=== PATIENT | female | born 1995 | race African-American/Black ===

== ENCOUNTER 2016-05-04 13:30 | Emergency (ER) | payer SELFPAY ==
[~2016-05-04] VITALS: Ht 149.9 cm; Wt 90.0 kg
[~2016-05-04 13:30] MED LIST: ABIL5TAB6 PO; IBUP-232 PO
[2016-05-04 13:44] VITALS: BP 105/62; PULSE 64; RESP 18; TEMP 98.9; O2SAT 99
[2016-05-04] MEDS ORDERED: LAMO200T PO (13:56)
[2016-05-04] MEDS ORDERED: FLUO20CA4 PO (13:56)
[2016-05-04] MEDS ORDERED: CEFT500T3 PO (13:56)
--- NOTE | 2016-05-04 14:15 | PD ---
HPI Chief Complaint: Pain: Acute or Chronic Time Seen by Provider: 14:08 Travel History International Travel<30 days: No Contact w/Intl Traveler<30days: No Traveled to known affect area: No History of Present Illness HPI 20-year-old female with PMH of depression, anxiety, DM presents to the ED via EMS for evaluation of 2 week history of generalized weakness. Onset gradual. Patient denies muscular weakness, states that she feels "tired." She endorses low back pain, worsened by attempted range of motion. Also endorses nausea with one or 2 episodes of nonbloody, nonbilious vomiting. No nausea reported on presentation. She reports history of unmeasured fever. She denies palpitations, shortness of breath, changes in bowel habits. She states that she ate a salami sandwich before coming to the ED today. Patient's boyfriend is at bedside, states that the patient has been sleeping "all day" for the last week. Patient endorses risk of , states LMP "2 weeks ago." The patient endorses increased depression, anhedonia. Denies SI, HI. She states that she is noncompliant with any of her daily medications. PFSH Past Medical History Asthma: Yes Depression: Yes Diabetes: Yes Patient Takes Glucophage: No Diminished Hearing: No Hypertension: Yes Tetanus Vaccination: Unknown Influenza Vaccination: No ?: Not LMP: 04/23/16 : 0 Para: 0 Miscarriage: 0 : 0 Past Surgical History Abdominal Surgery: Yes (ovarian cyst) Gynecologic Surgery: Yes (RIGHT OVARIAN CYST) Other Surgery: Yes (OVARIAN CYST REMOVED) Social History Alcohol Use: No Tobacco Use: Yes (black & milds) Substance Use: No (DENIES) Allergies-Medications (Allergen,Severity, Reaction): Coded Allergies: No Known Allergies (Unverified , 05/04/16) Reported Meds & Prescriptions Reported Meds & Active Scripts Active Bactrim DS (Sulfamethoxazole-Trimethoprim) 800-160 Mg Tab 1 Tab PO BID Reported Lamotrigine 200 Mg Tab 200 Mg PO DAILY Fluoxetine (Fluoxetine HCl) 20 Mg Cap 20 Mg PO DAILY Ceftin (Cefuroxime Axetil) 500 Mg Tab 500 Mg PO TID Review of Systems Except as stated in HPI: all other systems reviewed are Neg Physical Exam Narrative GENERAL: Well-nourished, well-developed obese black female in no acute distress. PSYCHIATRIC: No delusional thought processes. No hallucinations. Depressed mood. Flat affect. SKIN: Warm and dry. HEAD: Normocephalic. EYES: No scleral icterus. No injection or drainage. NECK: Supple, trachea midline. No JVD or lymphadenopathy. CARDIOVASCULAR: Regular rate and rhythm without murmurs, gallops, or rubs. 2+ DP and radial pulses bilaterally. Mild midline tenderness to palpation of the precordium. RESPIRATORY: Breath sounds clear and equal bilaterally. No accessory muscle use. GASTROINTESTINAL: Abdomen soft, non-tender, nondistended. Active bowel sounds. MUSCULOSKELETAL: No cyanosis, or edema. NEUROLOGICAL: Awake and alert. Cranial nerves II through XII intact. Motor and sensory grossly within normal limits. Five out of 5 muscle strength in all muscle groups. Normal speech. BACK: No obvious deformity. No CVA tenderness. Tender to palpation of the paraspinal musculature in the low thoracic and lumbar areas. Data Data Last Documented VS Vital Signs Date Time Temp Pulse Resp B/P Pulse Ox O2 Delivery O2 Flow Rate FiO2 05/04/16 15:05 99 Room Air 05/04/16 13:44 98.9 64 18 105/62 Orders Complete Blood Count With Diff (05/04/16 14:06) Comprehensive Metabolic Panel (05/04/16 14:06) Lipase (05/04/16 14:06) Lactic Acid (05/04/16 14:06) Urinalysis - C+S If Indicated (05/04/16 14:06) Iv Access Insert/Monitor (05/04/16 14:06) Ecg Monitoring (05/04/16 14:06) Oximetry (05/04/16 14:06) Ed Urine Pregnancytest Poc (05/04/16 14:06) Psych Screen (05/04/16 14:06) Thyroid Stimulating Hormone (05/04/16 14:06) Urine Culture (05/04/16 14:15) Ceftriaxone Inj (Rocephin Inj) (05/04/16 15:30) Ketorolac Inj (Toradol Inj) (05/04/16 15:30) Labs Laboratory Tests Test 05/04/16 05/04/16 14:15 14:25 Urine Color YELLOW Urine Turbidity HAZY Urine pH 6.5 Urine Specific [place] 1.013 Urine Protein NEG mg/dL Urine Glucose (UA) 300 mg/dL Urine Ketones NEG mg/dL Urine Occult Blood NEG Urine Nitrite POS Urine Bilirubin NEG Urine Urobilinogen LESS THAN 2.0 MG/DL Urine Leukocyte Esterase MOD Urine RBC LESS THAN 1 /hpf Urine WBC 36 /hpf Urine WBC Clumps RARE Urine Squamous Epithelial 4 /hpf Cells Urine Mucus FEW /lpf Microscopic Urinalysis Comment CULTURE INDICATED White Blood Count 6.0 TH/MM3 Red Blood Count 5.17 MIL/MM3 Hemoglobin 12.5 GM/DL Hematocrit 38.5 % Mean Corpuscular Volume 74.6 FL Mean Corpuscular Hemoglobin 24.2 PG Mean Corpuscular Hemoglobin 32.4 % Concent Red Cell Distribution Width 15.5 % Platelet Count 239 TH/MM3 Mean Platelet Volume 9.7 FL Neutrophils (%) (Auto) 50.7 % Lymphocytes (%) (Auto) 35.3 % Monocytes (%) (Auto) 11.6 % Eosinophils (%) (Auto) 1.6 % Basophils (%) (Auto) 0.8 % Neutrophils # (Auto) 3.0 TH/MM3 Lymphocytes # (Auto) 2.1 TH/MM3 Monocytes # (Auto) 0.7 TH/MM3 Eosinophils # (Auto) 0.1 TH/MM3 Basophils # (Auto) 0.0 TH/MM3 CBC Comment AUTO DIFF Differential Comment AUTO DIFF CONFIRMED Platelet Estimate NORMAL Platelet Morphology Comment NORMAL Red Cell Morphology Comment NORMAL Sodium Level 141 MEQ/L Potassium Level 4.1 MEQ/L Chloride Level 109 MEQ/L Carbon Dioxide Level 24.4 MEQ/L Anion Gap 8 MEQ/L Blood Urea Nitrogen 7 MG/DL Creatinine 0.60 MG/DL Estimat Glomerular Filtration 153 ML/MIN Rate Random Glucose 82 MG/DL Lactic Acid Level 0.3 mmol/L Calcium Level 8.9 MG/DL Total Bilirubin 0.4 MG/DL Aspartate Amino Transf 18 U/L (AST/SGOT) Alanine Aminotransferase 19 U/L (ALT/SGPT) Alkaline Phosphatase 79 U/L Total Protein 7.7 GM/DL Albumin 3.2 GM/DL Lipase 205 U/L Thyroid Stimulating Hormone 0.944 uIU/ML 3rd Gen [facility] Medical Decision Making Medical Screen Exam Complete: Yes Emergency Medical Condition: Yes Differential Diagnosis UTI versus versus depression versus hypothyroidism versus medication noncompliance versus malingering versus other Narrative Course 20-year-old female with PMH of depression, anxiety, DM presents to the ED via EMS for evaluation of 2 week history of generalized weakness. Onset gradual. Patient denies muscular weakness, states that she feels "tired." She endorses low back pain, worsened by attempted range of motion. Endorses nausea with one or 2 episodes of nonbloody, nonbilious vomiting. No nausea reported on presentation. She reports history of unmeasured fever. She denies palpitations , shortness of breath, changes in bowel habits, numbness, tingling, weakness, limitations to range of motion of the lower extremities. The patient endorses increased depression, anhedonia. Denies SI, HI. Vitals reviewed. Physical exam reveals a nontoxic-appearing obese black female in no acute distress. She does have a flat affect and endorses depression. No appreciable M/R/G, CTAB, abdominal exam is reassuring. Positive tenderness to palpation of the paraspinal musculature in the low thoracic and lumbar areas. IV was established. Patient was placed on continuous monitoring. CBC: Unremarkable. CMP: Unremarkable TSH within normal limits. UA: Hazy, nitrite positive, moderate leukocyte esterase, 36 to PVCs, rare clumps , few mucus. Culture pending. Urine test negative. Patient was administered IV Toradol. 1 g of Rocephin IV ordered. She'll be provided a prescription for Bactrim DS twice a day 5 days. I spoke with the patient about her depression, she volunteers to be evaluated by psychiatry. Patient is medically cleared for psychiatric evaluation. Diagnosis Primary Impression: Pyelonephritis Referrals: Primary Care Physician Patient Instructions: Depression (ED), General Instructions, Urinary Tract Infection in Women (ED) Additional Instructions: A mixture of activity and rest as best for back pain. Resume normal, gentle activities as tolerated. Take all antibiotics as prescribed, even if symptoms resolve. In other words, TAKE ALL OF THESE ANTIBIOTICS! Follow-up with the primary care provider next week. Return to the ED for any urgent or emergent medical condition. Med/Other Pt SpecificInfo: Prescription(s) given Scripts Sulfamethoxazole-Trimethoprim (Bactrim DS)800-160 Mg Tab1 Tab PO BID #10 TAB Ref 0 Prov:Karon Francois MD 05/04/16 Disposition: 01 DISCHARGE HOME Condition: Stable Marsha Brooks May 04, 2016 14:15
[2016-05-04 14:49] LABS: BASOPHIL % 0.8 % (0.0-2.0); EOSINOPHIL # 0.1 TH/MM3 (0-0.4); EOSINOPHIL % 1.6 % (0.0-4.0); HEMATOCRIT 38.5 % (35.0-46.0); LYMPH % 35.3 % (9.0-44.0); LYMPHOCYTE # 2.1 TH/MM3 (1.0-4.8); MEAN CELL VOLUME 74.6 FL (80.0-100.0); MEAN CORPUSCULAR HEMOGLOBIN 24.2 PG (27.0-34.0); MEAN CORPUSCULAR HGB CONC 32.4 % (32.0-36.0); MONO % 11.6 % (0.0-8.0); NEUT % 50.7 % (16.0-70.0); PLATELET COUNT 239 TH/MM3 (150-450); RED BLOOD COUNT 5.17 MIL/MM3 (4.00-5.30); RED CELL DISTRIBUTION WIDTH 15.5 % (11.6-17.2)
[2016-05-04 14:53] LABS: HEMO FLAGS AUTO DIFF
[2016-05-04 14:57] LABS: BLOOD, URINE NEG (NEG); COMMENT (UR) CULTURE INDICATED; CULTURE IF INDICATED CULTURE INDICATED; GLUCOSE,URINE 300 mg/dL (NEG); KETONE, URINE NEG (NEG); MUCUS URINE FEW /lpf (OCC); NITRITE,URINE POS (NEG); PH, URINE 6.5 (5.0-8.5); SQUAMOUS EPITHELIAL CELL URINE 4 /hpf (0-5); URINE COLOR YELLOW (YELLW/STRAW)
[2016-05-04 15:05] VITALS: O2SAT 99
[2016-05-04 15:14] LABS: ALT (GPT) 19 U/L (10-53); ANION GAP 8 MEQ/L (5-15); AST (GOT) 18 U/L (15-37); BICARBONATE 24.4 MEQ/L (21.0-32.0); BLOOD UREA NITROGEN 7 MG/DL (7-18); CHLORIDE 109 MEQ/L (98-107); GLOMERULAR FILTRATION RATE 153 ML/MIN (>89); SODIUM (NA) 141 MEQ/L (136-145)
[2016-05-04 15:21] LABS: ALKALINE PHOSPHATASE 79 U/L (45-117); PLATELET ESTIMATE SMEAR NORMAL (NORMAL); PLATELET MORPHOLOGY NORMAL (NORMAL); SCAN/DIFF AUTO DIFF CONFIRMED; TOTAL BILIRUBIN ADULT 0.4 MG/DL (0.2-1.0)
[2016-05-04 15:24] LABS: POTASSIUM 4.1 MEQ/L (3.5-5.1)
[2016-05-04] MEDS ORDERED: KETOROLAC TROMETHAMINE 30 MG/ML (IVP) VIAL IV PUSH ONE (15:30)
[2016-05-04] MEDS ORDERED: cefTRIAXone INJ 1,000 MG in SODIUM CHLORIDE 0.9% INJ 100 ML IV ONE (15:30)
--- NOTE | 2016-05-04 15:42 | PD ---
Data Data Last Documented VS Vital Signs Date Time Temp Pulse Resp B/P Pulse Ox O2 Delivery O2 Flow Rate FiO2 05/04/16 15:05 99 Room Air 05/04/16 13:44 98.9 64 18 105/62 Orders Complete Blood Count With Diff (05/04/16 14:06) Comprehensive Metabolic Panel (05/04/16 14:06) Lipase (05/04/16 14:06) Lactic Acid (05/04/16 14:06) Urinalysis - C+S If Indicated (05/04/16 14:06) Iv Access Insert/Monitor (05/04/16 14:06) Ecg Monitoring (05/04/16 14:06) Oximetry (05/04/16 14:06) Ed Urine Pregnancytest Poc (05/04/16 14:06) Psych Screen (05/04/16 14:06) Thyroid Stimulating Hormone (05/04/16 14:06) Urine Culture (05/04/16 14:15) Ceftriaxone Inj (Rocephin Inj) (05/04/16 15:30) Ketorolac Inj (Toradol Inj) (05/04/16 15:30) Labs Laboratory Tests Test 05/04/16 05/04/16 14:15 14:25 Urine Color YELLOW Urine Turbidity HAZY Urine pH 6.5 Urine Specific [place] 1.013 Urine Protein NEG mg/dL Urine Glucose (UA) 300 mg/dL Urine Ketones NEG mg/dL Urine Occult Blood NEG Urine Nitrite POS Urine Bilirubin NEG Urine Urobilinogen LESS THAN 2.0 MG/DL Urine Leukocyte Esterase MOD Urine RBC LESS THAN 1 /hpf Urine WBC 36 /hpf Urine WBC Clumps RARE Urine Squamous Epithelial 4 /hpf Cells Urine Mucus FEW /lpf Microscopic Urinalysis Comment CULTURE INDICATED White Blood Count 6.0 TH/MM3 Red Blood Count 5.17 MIL/MM3 Hemoglobin 12.5 GM/DL Hematocrit 38.5 % Mean Corpuscular Volume 74.6 FL Mean Corpuscular Hemoglobin 24.2 PG Mean Corpuscular Hemoglobin 32.4 % Concent Red Cell Distribution Width 15.5 % Platelet Count 239 TH/MM3 Mean Platelet Volume 9.7 FL Neutrophils (%) (Auto) 50.7 % Lymphocytes (%) (Auto) 35.3 % Monocytes (%) (Auto) 11.6 % Eosinophils (%) (Auto) 1.6 % Basophils (%) (Auto) 0.8 % Neutrophils # (Auto) 3.0 TH/MM3 Lymphocytes # (Auto) 2.1 TH/MM3 Monocytes # (Auto) 0.7 TH/MM3 Eosinophils # (Auto) 0.1 TH/MM3 Basophils # (Auto) 0.0 TH/MM3 CBC Comment AUTO DIFF Differential Comment AUTO DIFF CONFIRMED Platelet Estimate NORMAL Platelet Morphology Comment NORMAL Red Cell Morphology Comment NORMAL Sodium Level 141 MEQ/L Potassium Level 4.1 MEQ/L Chloride Level 109 MEQ/L Carbon Dioxide Level 24.4 MEQ/L Anion Gap 8 MEQ/L Blood Urea Nitrogen 7 MG/DL Creatinine 0.60 MG/DL Estimat Glomerular Filtration 153 ML/MIN Rate Random Glucose 82 MG/DL Lactic Acid Level 0.3 mmol/L Calcium Level 8.9 MG/DL Total Bilirubin 0.4 MG/DL Aspartate Amino Transf 18 U/L (AST/SGOT) Alanine Aminotransferase 19 U/L (ALT/SGPT) Alkaline Phosphatase 79 U/L Total Protein 7.7 GM/DL Albumin 3.2 GM/DL Lipase 205 U/L Thyroid Stimulating Hormone 0.944 uIU/ML 3rd Gen MDM Supervised Visit with DREW: Yes Narrative Course The history, exam, and medical decision-making in the associated midlevel provider note were completed with my assistance. I reviewed and agree with the findings presented. I attest that I had a [id number] encounter with the patient on the same day, and personally performed and documented my assessment and findings in the medical record. *My assessment and Findings: This is a 20-year-old female who presents to the emergency department with malaise, lower abdominal pain and some depressive symptoms. She is very well-appearing on exam but does have flat affect and some poor eye contact. She was found have a urinary tract infection. She also appears quite depressed. Patient is voluntary to be evaluated by psychiatry. She's not expressing any suicidal ideation and I don't think she is a harm to herself or others at this time. Diagnosis Primary Impression: Pyelonephritis Referrals: Primary Care Physician Patient Instructions: General Instructions, Urinary Tract Infection in Women ( ED), Depression (ED) Disposition: 01 DISCHARGE HOME Condition: Stable Karon Francois MD May 04, 2016 15:42
[2016-05-04] MEDS ORDERED: BACT800T5 PO (15:50)
[2016-05-04 16:18] VITALS: BP 101/61; PULSE 57; RESP 18; O2SAT 99
[2016-05-04 18:00] VITALS: BP 125/76; PULSE 57; RESP 18; TEMP 98.5; O2SAT 97
== END 2016-05-04 19:44 | disposition home or self-care (01) ==
LOC: NEPC 13:30 → NEPJ 19:44
DX: N12 Tubulo-interstitial nephritis, not specified as acute or chronic (principal); F32.9 Major depressive disorder, single episode, unspecified; R53.83 Other fatigue; M54.5 Low back pain; R11.2 Nausea with vomiting, unspecified; R50.9 Fever, unspecified; E11.9 Type 2 diabetes mellitus without complications; I10 Essential (primary) hypertension; Z72.0 Tobacco use; Z87.09 Personal history of other diseases of the respiratory system; Z86.59 Personal history of other mental and behavioral disorders
CPT/HCPCS: 80053; 81001; 83605; 83690; 84443; 84703; 85025; 87077; 87086; 87186; 96365; 96375; 99285; J0696; J1885

== ENCOUNTER 2016-06-07 13:54 | Emergency (ER) | payer SELFPAY ==
[~2016-06-07] VITALS: Ht 149.9 cm; Wt 90.4 kg
[~2016-06-07 13:54] MED LIST changes: -ABIL5TAB6 PO; +BACT800T5 PO; +CEFT500T3 PO; +FLUO20CA4 PO; -IBUP-232 PO; +LAMO200T PO
[2016-06-07 14:06] VITALS: BP 113/73; PULSE 79; RESP 16; TEMP 98.5; O2SAT 99
--- NOTE | 2016-06-07 14:44 | PD ---
HPI Chief Complaint: Anxiety Time Seen by Provider: 14:33 Travel History International Travel<30 days: No Contact w/Intl Traveler<30days: No Traveled to known affect area: No History of Present Illness HPI Patient is a 20-year-old female who presents emergency department with complaint of anxiety. Patient states that she is having some anxiety over a possible scare. She is unsure whether she may be . She has not had any vaginal bleeding or abdominal pain. She has not bothered to take a home test. Feels anxious and was told by her mother that will not show up in her urine and she needs a blood test and therefore patient came here for evaluation. Patient describes her anxiety as nervousness, tightness in the chest and slight shortness of breath. PFSH Past Medical History Asthma: Yes Depression: Yes Cardiovascular Problems: Yes (states have htn on meds) Diabetes: Yes (type 2) Patient Takes Glucophage: No Diminished Hearing: No Hypertension: Yes Respiratory: Yes (asthma) Influenza Vaccination: No ?: Unknown LMP: 05/26/16 : 0 Para: 0 Miscarriage: 0 : 0 Past Surgical History Abdominal Surgery: Yes (ovarian cyst) Gynecologic Surgery: Yes (RIGHT OVARIAN CYST) Other Surgery: Yes (OVARIAN CYST REMOVED) Social History Alcohol Use: No Tobacco Use: Yes (black & milds) Substance Use: Yes Allergies-Medications (Allergen,Severity, Reaction): Coded Allergies: No Known Allergies (Unverified , 06/07/16) Reported Meds & Prescriptions Reported Meds & Active Scripts Active No Active Prescriptions or Reported Medications Review of Systems Except as stated in HPI: all other systems reviewed are Neg Physical Exam Narrative GENERAL: Well-appearing female in no acute distress SKIN: Focused skin assessment warm/dry. HEAD: Normocephalic. EYES: No scleral icterus. No injection or drainage. ENT: Mucous membranes pink and moist. NECK: Supple CARDIOVASCULAR: Regular rate and rhythm. No murmur appreciated. RESPIRATORY: No accessory muscle use. Clear to auscultation. Breath sounds equal bilaterally. GASTROINTESTINAL: Abdomen soft, non-tender, nondistended. Obese MUSCULOSKELETAL: Normal gait NEUROLOGICAL: Awake and alert. Normal speech. PSYCHIATRIC: Poor insight and judgment Data Data Last Documented VS Vital Signs Date Time Temp Pulse Resp B/P Pulse Ox O2 Delivery O2 Flow Rate FiO2 06/07/16 14:06 98.5 79 16 113/73 99 [facility] Medical Decision Making Medical Screen Exam Complete: Yes Emergency Medical Condition: No Medical Record Reviewed: Yes Differential Diagnosis 20-year-old female here with complaint of anxiety, and concern over possible . Patient is well-appearing and is not vehemently anxious on examination. Patient admits that she is primarily here for blood testing. This is not indicated nor is an emergency given lack of abdominal pain or vaginal bleeding. Narrative Course Patient medical clear throughout our [facility] no program and will be seen by financial screener. I recommend that she take home test. Diagnosis Primary Impression: Concern about unplanned without diagnosis Additional Instructions: Take home test Scripts No Active Prescriptions or Reported Meds Disposition: EDGO-ED USE ONLY Condition: Stable Daphne Andrade MD Jun 07, 2016 14:44
== END 2016-06-07 14:50 | disposition left against medical advice (07) ==
LOC: PHEFT 13:54
DX: E11.9 Type 2 diabetes mellitus without complications (principal); I10 Essential (primary) hypertension; Z72.0 Tobacco use
CPT/HCPCS: 99281

== ENCOUNTER 2016-07-10 18:53 | Emergency (ER) | payer SELFPAY ==
[2016-07-10 19:02] VITALS: BP 107/61; PULSE 67; RESP 14; TEMP 98.6; O2SAT 100
--- NOTE | 2016-07-10 19:11 | PD ---
Physical Exam Time Seen by Provider: 19:10 Narrative 20 y/o female here with lower abdominal pain for 2 days. associated nausea, vomiting. Denies dysuria, vaginal bleeding/discharge. vital signs reviewed. Seen at triage desk. Awaiting bed placement. Data Data Last Documented VS Vital Signs Date Time Temp Pulse Resp B/P Pulse Ox O2 Delivery O2 Flow Rate FiO2 07/10/16 19:02 98.6 67 14 107/61 100 Room Air [facility] Medical Record Reviewed: Yes Supervised Visit with DREW: No Scripts No Active Prescriptions or Reported Meds Keith Farias July 10, 2016 19:11
[2016-07-10] MEDS ORDERED: ONDANSETRON HCL 4 MG/2 ML VIAL IVP ONE (20:45)
[2016-07-10] MEDS ORDERED: SODIUM CHLORIDE 0.9% FLUSH 10 ML FLUSH IVF PRN (20:45)
[2016-07-10] MEDS ORDERED: SODIUM CHLOR 0.9% 1000 ML INJ 1,000 ML IV ONE (20:45)
[2016-07-10] MEDS ORDERED: LAMO200T PO (20:45)
[2016-07-10] MEDS ORDERED: FLUO40CA PO (20:45)
--- NOTE | 2016-07-10 20:48 | PD ---
HPI Chief Complaint: Abdominal Pain Time Seen by Provider: 20:41 Travel History International Travel<30 days: No Contact w/Intl Traveler<30days: No Traveled to known affect area: No History of Present Illness HPI Patient is a 20-year-old female who presents to emergency room with complaints of abdominal pain. Patient reports that she thinks that she may be as she has had very light periods over the past 2 months. Patient is sexually active, she does not use contraceptives. Patient reports that she is here to see if she is . Patient also reports that she has been having lower abdominal pain and cramping for the past 2 days. Patient reports that she felt nauseous yesterday and had 1 episode of vomiting. She reports that she just feels nauseous today. Patient denies any fevers or chills, denies any constipation or diarrhea. Patient denies any vaginal discharge, vaginal bleeding, denies dysuria, urinary urgency or frequency. PFSH Past Medical History Asthma: Yes Depression: Yes Cardiovascular Problems: Yes (states have htn on meds) Diabetes: Yes (type 2) Patient Takes Glucophage: No Diminished Hearing: No Hypertension: Yes Respiratory: Yes (asthma) Tetanus Vaccination: < 5 Years ?: Unknown LMP: 06/23/16 : 0 Para: 0 Miscarriage: 0 : 0 Past Surgical History Abdominal Surgery: Yes (ovarian cyst) Gynecologic Surgery: Yes (RIGHT OVARIAN CYST) Other Surgery: Yes (OVARIAN CYST REMOVED) Social History Alcohol Use: No Tobacco Use: Yes (black & milds) Substance Use: Yes Allergies-Medications (Allergen,Severity, Reaction): Coded Allergies: No Known Allergies (Unverified , 07/10/16) Reported Meds & Prescriptions Reported Meds & Active Scripts Active Reported Fluoxetine (Fluoxetine HCl) 40 Mg Cap 40 Cap PO DAILY Lamotrigine 200 Mg Tab 200 Mg PO DAILY Review of Systems General / Constitutional: No: Fever Eyes: No: Visual changes HENT: No: Headaches Cardiovascular: No: Chest Pain or Discomfort Respiratory: No: Shortness of Breath Gastrointestinal: Positive: Nausea, Vomiting, Abdominal Pain Genitourinary: No: Urgency, Frequency, Dysuria Musculoskeletal: No: Pain Skin: No Rash Neurologic: No: Weakness Psychiatric: No: Depression Endocrine: No: Polydipsia Hematologic/Lymphatic: No: Easy Bruising Physical Exam Narrative GENERAL: No acute distress, nontoxic SKIN: Focused skin assessment warm/dry. HEAD: Atraumatic. Normocephalic. EYES: Pupils equal and round. No scleral icterus. No injection or drainage. ENT: No nasal bleeding or discharge. Mucous membranes pink and moist. NECK: Trachea midline. No JVD. CARDIOVASCULAR: Regular rate and rhythm. No murmur appreciated. RESPIRATORY: No accessory muscle use. Clear to auscultation. Breath sounds equal bilaterally. GASTROINTESTINAL: Abdomen soft, non-tender, nondistended. MUSCULOSKELETAL: No obvious deformities. No clubbing. No cyanosis. No edema. NEUROLOGICAL: Awake and alert. No obvious cranial nerve deficits. Motor grossly within normal limits. Normal speech. PSYCHIATRIC: Appropriate mood and affect; insight and judgment normal. Data Data Last Documented VS Vital Signs Date Time Temp Pulse Resp B/P Pulse Ox O2 Delivery O2 Flow Rate FiO2 07/10/16 20:59 57 18 136/78 100 Room Air 07/10/16 19:02 98.6 Orders Beta Hcg (Quant/Titer) (07/10/16 20:42) Complete Blood Count With Diff (07/10/16 20:42) Comprehensive Metabolic Panel (07/10/16 20:42) Urinalysis - C+S If Indicated (07/10/16 20:42) Iv Access Insert/Monitor (07/10/16 20:42) Sodium Chloride 0.9% Flush (Ns Flush) (07/10/16 20:45) Ondansetron Inj (Zofran Inj) (07/10/16 20:45) Ed Urine Pregnancytest Poc (07/10/16 20:42) Sodium Chlor 0.9% 1000 Ml Inj (Ns 1000 M (07/10/16 20:45) Ct Abd/Pel W Iv Contrast(Rout) (07/10/16 21:33) Iohexol 350 Inj (Omnipaque 350 Inj) (07/10/16 22:45) Labs Laboratory Tests Test 07/10/16 07/10/16 20:45 20:50 Urine Color YELLOW Urine Turbidity HAZY Urine pH 5.5 Urine Specific [place] 1.013 Urine Protein NEG mg/dL Urine Glucose (UA) NEG mg/dL Urine Ketones NEG mg/dL Urine Occult Blood NEG Urine Nitrite NEG Urine Bilirubin NEG Urine Urobilinogen LESS THAN 2.0 MG/DL Urine Leukocyte Esterase NEG Urine WBC 1 /hpf Urine Squamous Epithelial 3 /hpf Cells Urine Bacteria RARE /hpf Urine Mucus FEW /lpf Microscopic Urinalysis Comment CULT NOT INDICATED White Blood Count 5.6 TH/MM3 Red Blood Count 5.61 MIL/MM3 Hemoglobin 13.9 GM/DL Hematocrit 41.6 % Mean Corpuscular Volume 74.2 FL Mean Corpuscular Hemoglobin 24.8 PG Mean Corpuscular Hemoglobin 33.4 % Concent Red Cell Distribution Width 16.1 % Platelet Count 288 TH/MM3 Mean Platelet Volume 9.1 FL Neutrophils (%) (Auto) 50.7 % Lymphocytes (%) (Auto) 37.8 % Monocytes (%) (Auto) 9.7 % Eosinophils (%) (Auto) 1.2 % Basophils (%) (Auto) 0.6 % Neutrophils # (Auto) 2.8 TH/MM3 Lymphocytes # (Auto) 2.1 TH/MM3 Monocytes # (Auto) 0.5 TH/MM3 Eosinophils # (Auto) 0.1 TH/MM3 Basophils # (Auto) 0.0 TH/MM3 CBC Comment AUTO DIFF Differential Comment AUTO DIFF CONFIRMED Sodium Level 140 MEQ/L Potassium Level 3.9 MEQ/L Chloride Level 106 MEQ/L Carbon Dioxide Level 27.2 MEQ/L Anion Gap 7 MEQ/L Blood Urea Nitrogen 5 MG/DL Creatinine 0.74 MG/DL Estimat Glomerular Filtration 120 ML/MIN Rate Random Glucose 81 MG/DL Calcium Level 8.6 MG/DL Total Bilirubin 0.2 MG/DL Aspartate Amino Transf 21 U/L (AST/SGOT) Alanine Aminotransferase 25 U/L (ALT/SGPT) Alkaline Phosphatase 107 U/L Total Protein 8.1 GM/DL Albumin 3.5 GM/DL Human Chorionic Gonadotropin, LESS THAN 1 Quant MIU/ML MDM Medical Decision Making Medical Screen Exam Complete: Yes Emergency Medical Condition: Yes Interpretation(s) Vital Signs Date Time Temp Pulse Resp B/P Pulse Ox O2 Delivery O2 Flow Rate FiO2 07/10/16 19:02 98.6 67 14 107/61 100 Room Air Differential Diagnosis Abdominal cramping with nausea and vomiting could be secondary to , appendicitis, cervicitis, ovarian cyst, ovarian torsion, UTI, gastroenteritis, electrolyte abnormality Narrative Course Patient is a 20-year-old female who presents to emergency room with complaints of abdominal pain for the past 2 days. Patient is concerned that she may be as she had very light periods the past 2 months. She did not take a home test. Patient reports that since yesterday, she has been having lower abdominal cramping with nausea. She did have one episode of emesis today. Overall, abdomen is soft, nontender, nondistended, no peritoneal signs. Plan to check urine test, will obtain lab work, will give IV fluids as well as antiemetics. Plan to perform serial abdominal exams on patient. Patient denies vaginal discharge/bleeding at this time. Patient defers pelvic exam. Vital Signs Date Time Temp Pulse Resp B/P Pulse Ox O2 Delivery O2 Flow Rate FiO2 07/10/16 20:59 57 18 136/78 100 Room Air 07/10/16 19:02 98.6 67 14 107/61 100 Room Air Laboratory Tests Test 07/10/16 07/10/16 20:45 20:50 Urine Color YELLOW (YELLW/STRAW) Urine Turbidity HAZY (CLEAR) Urine pH 5.5 (5.0-8.5) Urine Specific [place] 1.013 (1.002-1.035) Urine Protein NEG mg/dL (NEG-TRACE) Urine Glucose (UA) NEG mg/dL (NEG) Urine Ketones NEG mg/dL (NEG) Urine Occult Blood NEG (NEG) Urine Nitrite NEG (NEG) Urine Bilirubin NEG (NEG) Urine Urobilinogen LESS THAN 2.0 MG/DL (LESS THAN 2.0) Urine Leukocyte Esterase NEG (NEG) Urine WBC 1 /hpf (0-5) Urine Squamous Epithelial 3 /hpf (0-5) Cells Urine Bacteria RARE /hpf (NONE) Urine Mucus FEW /lpf (OCC) Microscopic Urinalysis Comment CULT NOT INDICATED White Blood Count 5.6 TH/MM3 (4.0-11.0) Red Blood Count 5.61 MIL/MM3 (4.00-5.30) Hemoglobin 13.9 GM/DL (11.6-15.3) Hematocrit 41.6 % (35.0-46.0) Mean Corpuscular Volume 74.2 FL (80.0-100.0) Mean Corpuscular Hemoglobin 24.8 PG (27.0-34.0) Mean Corpuscular Hemoglobin 33.4 % Concent (32.0-36.0) Red Cell Distribution Width 16.1 % (11.6-17.2) Platelet Count 288 TH/MM3 (150-450) Mean Platelet Volume 9.1 FL (7.0-11.0) Neutrophils (%) (Auto) 50.7 % (16.0-70.0) Lymphocytes (%) (Auto) 37.8 % (9.0-44.0) Monocytes (%) (Auto) 9.7 % (0.0-8.0) Eosinophils (%) (Auto) 1.2 % (0.0-4.0) Basophils (%) (Auto) 0.6 % (0.0-2.0) Neutrophils # (Auto) 2.8 TH/MM3 (1.8-7.7) Lymphocytes # (Auto) 2.1 TH/MM3 (1.0-4.8) Monocytes # (Auto) 0.5 TH/MM3 (0-0.9) Eosinophils # (Auto) 0.1 TH/MM3 (0-0.4) Basophils # (Auto) 0.0 TH/MM3 (0-0.2) CBC Comment AUTO DIFF Differential Comment AUTO DIFF CONFIRMED Sodium Level 140 MEQ/L (136-145) Potassium Level 3.9 MEQ/L (3.5-5.1) Chloride Level 106 MEQ/L (98-107) Carbon Dioxide Level 27.2 MEQ/L (21.0-32.0) Anion Gap 7 MEQ/L (5-15) Blood Urea Nitrogen 5 MG/DL (7-18) Creatinine 0.74 MG/DL (0.50-1.00) Estimat Glomerular Filtration 120 ML/MIN Rate (>89) Random Glucose 81 MG/DL (74-106) Calcium Level 8.6 MG/DL (8.5-10.1) Total Bilirubin 0.2 MG/DL (0.2-1.0) Aspartate Amino Transf 21 U/L (15-37) (AST/SGOT) Alanine Aminotransferase 25 U/L (10-53) (ALT/SGPT) Alkaline Phosphatase 107 U/L (45-117) Total Protein 8.1 GM/DL (6.4-8.2) Albumin 3.5 GM/DL (3.4-5.0) Human Chorionic Gonadotropin, LESS THAN 1 Quant MIU/ML (0-5) Last Impressions Abdomen/Pelvis CT 07/10/16 5333 Signed Impressions: Service Date/Time: Sunday, July 10, 2016 22:36 - CONCLUSION: 1. Unremarkable bowel gas pattern with no inflammatory change or obstruction. 2. The gallbladder is within normal limits. Feliz Marie MD Patient reevaluated, patient reports that she is feeling much better at this time. Abdomen is Soft, nontender, nondistended, no peritoneal signs. Labs are unremarkable, HCG Quant is negative for . Ct abdomen and pelvis is unremarkable as per radiologist. Signs and symptoms of when to return to the emergency room was reviewed patient in detail. Patient will follow up with her primary care doctor and will return to ER needed. Signs and symptoms of acute abdomen reviewed with patient. Diagnosis Primary Impression: Abdominal pain Additional Impression: Concern about current without diagnosis Patient Instructions: General Instructions Additional Instructions: Please follow up with your primary care doctor in 1-2 days Return to the emergency room if symptoms worsen or progress Please return to emergency room as needed Disposition: 01 DISCHARGE HOME Condition: Stable Fidelina Valladares DO July 10, 2016 20:48
[2016-07-10 20:59] VITALS: BP 136/78; PULSE 57; RESP 18; O2SAT 100
[2016-07-10 21:13] LABS: AUTOMATED NEUTROPHIL # 2.8 TH/MM3 (1.8-7.7); BASOPHIL % 0.6 % (0.0-2.0); EOSINOPHIL # 0.1 TH/MM3 (0-0.4); EOSINOPHIL % 1.2 % (0.0-4.0); HEMATOCRIT 41.6 % (35.0-46.0); LYMPH % 37.8 % (9.0-44.0); LYMPHOCYTE # 2.1 TH/MM3 (1.0-4.8); MEAN CELL VOLUME 74.2 FL (80.0-100.0); MEAN CORPUSCULAR HEMOGLOBIN 24.8 PG (27.0-34.0); MEAN CORPUSCULAR HGB CONC 33.4 % (32.0-36.0); MONO % 9.7 % (0.0-8.0); NEUT % 50.7 % (16.0-70.0); PLATELET COUNT 288 TH/MM3 (150-450); RED BLOOD COUNT 5.61 MIL/MM3 (4.00-5.30); RED CELL DISTRIBUTION WIDTH 16.1 % (11.6-17.2); WHITE BLOOD COUNT 5.6 TH/MM3 (4.0-11.0)
[2016-07-10 21:15] LABS: BACTERIA, URINE RARE /hpf; BLOOD, URINE NEG (NEG); COMMENT (UR) CULT NOT INDICATED; CULTURE IF INDICATED CULT NOT INDICATED; GLUCOSE,URINE NEG (NEG); KETONE, URINE NEG (NEG); MUCUS URINE FEW /lpf (OCC); NITRITE,URINE NEG (NEG); PH, URINE 5.5 (5.0-8.5); SQUAMOUS EPITHELIAL CELL URINE 3 /hpf (0-5); URINE COLOR YELLOW (YELLW/STRAW)
[2016-07-10 21:21] LABS: HEMO FLAGS AUTO DIFF
[2016-07-10 21:43] LABS: ANION GAP 7 MEQ/L (5-15); AST (GOT) 21 U/L (15-37); BICARBONATE 27.2 MEQ/L (21.0-32.0); BLOOD UREA NITROGEN 5 MG/DL (7-18); CHLORIDE 106 MEQ/L (98-107); GLOMERULAR FILTRATION RATE 120 ML/MIN (>89); POTASSIUM 3.9 MEQ/L (3.5-5.1); SODIUM (NA) 140 MEQ/L (136-145)
[2016-07-10 21:55] LABS: ALKALINE PHOSPHATASE 107 U/L (45-117); ALT (GPT) 25 U/L (10-53); BETA HCG QUANT LESS THAN 1 MIU/ML (0-5); TOTAL BILIRUBIN ADULT 0.2 MG/DL (0.2-1.0)
[2016-07-10 21:59] LABS: SCAN/DIFF AUTO DIFF CONFIRMED
[2016-07-10] MEDS ORDERED: IOHEXOL 350 MG/ML 10 ML VIAL (for RAD DIAG) IV ONE (22:45)
--- NOTE | 2016-07-10 22:51 | RADRPT ---
EXAM DATE/TIME: 07/10/2016 22:36 [facility] COMPARISON: No previous studies available for comparison. INDICATIONS : Low abdomen pain with cramping past 2 days. IV CONTRAST: 93 cc Omnipaque 350 (iohexol) IV ORAL CONTRAST: No oral contrast ingested. RADIATION DOSE: 9.96 CTDIvol (mGy) MEDICAL HISTORY : None SURGICAL HISTORY : None. ENCOUNTER: Initial ACUITY: 2 days PAIN SCALE: 6/10 LOCATION: Bilateral low abdomen TECHNIQUE: Volumetric scanning of the abdomen and pelvis was performed. Using automated exposure control and ad justment of the mA and/or kV according to patient size, radiation dose was kept as low as reasonably achievable to obtain optimal diagnostic quality images. FINDINGS: LOWER LUNGS: The visualized lower lungs are clear. LIVER: Homogeneous density without lesion. There is no dilation of the biliary tree. No calcified gallston es. SPLEEN: Normal size without lesion. PANCREAS: Within normal limits. KIDNEYS: Normal in size and shape. There is no mass, stone or hydronephrosis. ADRENAL GLANDS: Within normal limits. VASCULAR: There is no aortic aneurysm. BOWEL/MESENTERY: The stomach, small bowel, and colon demonstrate no acute abnormality. There is no free intraperitone al air or fluid. ABDOMINAL WALL: Within normal limits. RETROPERITONEUM: There is no lymphadenopathy. BLADDER: No wall thickening or mass. REPRODUCTIVE: Within normal limits. INGUINAL: There is no lymphadenopathy or hernia. MUSCULOSKELETAL: Within normal limits for patient age. CONCLUSION: 1. Unremarkable bowel gas pattern with no inflammatory change or obstruction. 2. The gallbladder is within normal limits. Feliz Marie MD on July 10, 2016 at 22:47 Board Certified Radiologist. This report was verified electronically.
== END 2016-07-11 00:42 | disposition home or self-care (01) ==
LOC: NEPD 18:53
DX: R10.30 Lower abdominal pain, unspecified (principal); R11.2 Nausea with vomiting, unspecified; I10 Essential (primary) hypertension; E11.9 Type 2 diabetes mellitus without complications; Z72.0 Tobacco use; Z87.09 Personal history of other diseases of the respiratory system; Z86.59 Personal history of other mental and behavioral disorders; Z86.79 Personal history of other diseases of the circulatory system; Z32.02 Encounter for pregnancy test, result negative
CPT/HCPCS: 74177; 80053; 81001; 84702; 84703; 85025; 96361; 96374; 99284; J2405; J7030; Q9967

== ENCOUNTER 2016-10-02 16:26 | Emergency (ER) | payer OTHER ==
[~2016-10-02] VITALS: Ht 149.9 cm; Wt 90.5 kg
[~2016-10-02 16:26] MED LIST changes: -BACT800T5 PO; -CEFT500T3 PO; -FLUO20CA4 PO; +FLUO40CA PO
[2016-10-02 16:28] VITALS: BP 124/74; PULSE 84; RESP 20; TEMP 98.7; O2SAT 99
--- NOTE | 2016-10-02 19:24 | PD ---
HPI Chief Complaint: Musculoskeletal Complaint Time Seen by Provider: 19:21 Travel History International Travel<30 days: No Contact w/Intl Traveler<30days: No Traveled to known affect area: No History of Present Illness HPI Patient comes in complaining of right wrist pain that began 2 days ago. Patient states that she fell forward catching herself on her outstretched hand causing pain in her right wrist. Patient describes pain as aching over the radial aspect pointing to the anatomical snuffbox and radiates proximally. Patient taking Aleve with minimal relief of her symptoms. Pain is worse with movement. Patient denies hitting her head, loss consciousness, numbness or tingling anywhere, fevers, other known trauma, or known . Patient refused previously fractured this wrist over the radial aspect. PFSH Past Medical History Asthma: Yes Depression: Yes Cardiovascular Problems: Yes (states have htn on meds) Diabetes: Yes (METFORMIN HASN'T TAKEN IT SINCE APR) Diminished Hearing: No Hypertension: Yes Respiratory: Yes (asthma) ?: Unknown LMP: 08/19/16 : 0 Para: 0 Miscarriage: 0 : 0 Past Surgical History Abdominal Surgery: Yes (ovarian cyst) Gynecologic Surgery: Yes (RIGHT OVARIAN CYST) Other Surgery: Yes (OVARIAN CYST REMOVED) Social History Alcohol Use: No Tobacco Use: Yes (black & milds) Substance Use: Yes Allergies-Medications (Allergen,Severity, Reaction): Coded Allergies: No Known Allergies (Unverified , 07/10/16) Reported Meds & Prescriptions Reported Meds & Active Scripts Active Lortab (Hydrocodone-Acetaminophen) 5-325 Mg Tab 1 Tab PO Q8HR PRN Reported Fluoxetine (Fluoxetine HCl) 40 Mg Cap 40 Cap PO DAILY Lamotrigine 200 Mg Tab 200 Mg PO DAILY Review of Systems Except as stated in HPI: all other systems reviewed are Neg Physical Exam Narrative GENERAL: Well-developed, overly nourished, in no acute distress, and non-ill appearing. SKIN: Focused skin assessment warm and dry. Ganglion cyst noted right wrist radial aspect. HEAD: Atraumatic. Normocephalic. EYES: Pupils equal and round. EOMI. No scleral icterus. No injection or drainage. ENT: No nasal bleeding or discharge. Mucous membranes pink and moist. NECK: Trachea midline. Supple. No nuclear rigidity. CARDIOVASCULAR: Radial pulses 2+, intact, equal bilaterally. Capillary refill less than 2 seconds. RESPIRATORY: No accessory muscle use. No respiratory distress. MUSCULOSKELETAL: No obvious deformities. No clubbing. No cyanosis. No edema. Decreased range of motion right wrist secondary to pain. Wrist: FROM and equal BL with passive flexion, extension, and pronation/supination. Capillary refill less than 2 seconds distal to injury and equal BL. Decreased range of motion distal to injury secondary to pain. Strength distal to injury equal BL. NV intact distal to injury. Flexion and extension of thumb equal BL. Equal strength and movement with abduction/adductions of BL fingers. Social Media [employer]eter strength equal BL. Tenderness to the anatomical snuffbox. NEUROLOGICAL: Awake and alert. No obvious cranial nerve deficits. Motor grossly within normal limits. Normal speech. PSYCHIATRIC: Appropriate mood and affect; insight and judgment normal. Data Data Last Documented VS Vital Signs Date Time Temp Pulse Resp B/P Pulse Ox O2 Delivery O2 Flow Rate FiO2 10/02/16 16:28 98.7 84 20 124/74 99 Room Air Orders Wrist, Complete ([id number]) (10/02/16 ) Ice/Cold Pack (10/02/16 19:20) Splint Or Brace Apply/Monitor (10/02/16 19:55) MDM Medical Decision Making Medical Screen Exam Complete: Yes Emergency Medical Condition: Yes Interpretation(s) Right wrist x-ray read by the radiologist shows: Minimal lucency distal radius could be nondisplaced fracture. Patient previously fractured her radius. Reviewed the x-ray with Dr. Orantes and feel this is not an acute fracture based on clinical exam there is concern for scaphoid fracture. Will place patient in thumb spica with strict instructions to follow-up with hand surgeon. Differential Diagnosis Fracture, strain, contusion, other Narrative Course The patient sustained a fracture. The distal extremity appears neurovascularly intact, without evidence of neurovascular injury nor compartment syndrome. Tendon exam also was intact. The effected limb was splinted. The patient was discharged on pain medication along with fracture and splint care instructions and given warnings for vascular compromise. The patient is to follow up with hand surgeon. The patient agrees with plan. Patient in no obvious distress upon re-evaluation. All pertinent Radiology result(s) discussed with patient. Patient was asked if they wanted to speak to my attending, which the patient did not wish to do at this time. Any questions/ concerns in reference to patient diagnosis/condition discussed and clarified prior to patient's discharge. Reinforced sheer importance of close follow up with hand surgeon in 24-48 hours. Instructed patient to return to ED immediately , if symptoms return/worsen. Pt showed understanding of above instructions. Further instructions and recommendations were detailed in discharge paperwork. Pt ambulated without difficulty out of ED at discharge. Diagnosis Primary Impression: Scaphoid fracture, wrist, closed Qualified Code: S62.001A - Closed nondisplaced fracture of scaphoid of right wrist, unspecified portion of scaphoid, initial encounter Additional Impression: Ganglion cyst Referrals: Alan Enrique MD Patient Instructions: General Instructions, How to Use a Sling (GEN), Scaphoid Fracture (ED), Splint Care (DC) Additional Instructions: Follow-up with hand surgeon in 24-48 hours for reevaluation. Take all medication as prescribed. Apply ice to affected area 20 minutes per hour as needed for pain. Elevate affected wrist to decrease pain. Continue using over- the-counter Aleve as needed for pain. Follow instructions on the packaging. Return to the emergency department if symptoms get worse. Med/Other Pt SpecificInfo: Prescription(s) given Scripts Hydrocodone-Acetaminophen (Lortab)5-325 Mg Tab1 Tab PO Q8HR PRN (PAIN GREATER THAN 7) #7 TAB Ref 0 Prov:Rober Orantes MD 10/02/16 Disposition: 01 DISCHARGE HOME Condition: Stable Valentin Gamino Oct 02, 2016 19:23
--- NOTE | 2016-10-02 19:59 | RADRPT ---
EXAM DATE/TIME: 10/02/2016 19:52 [facility] COMPARISON: No previous studies available for comparison. INDICATIONS : Right wrist pain, fall 2 days ago. MEDICAL HISTORY : None. SURGICAL HISTORY : None. ENCOUNTER: Initial ACUITY: 2 days PAIN SCORE: 10/10 LOCATION: Right wrist. FINDINGS: Three view examination of the right wrist demonstrates soft tissue swelling. Minimal lucency distal r adius. The carpal bones are in normal alignment. The joint spaces are maintained. Bony mineralizat ion is normal. CONCLUSION: Minimal lucency distal radius could be nondisplaced fracture. Moisés Gracia MD on October 02, 2016 at 19:56 Board Certified Radiologist. This report was verified electronically.
[2016-10-02] MEDS ORDERED: HYDR-3533 PO (20:11)
== END 2016-10-02 20:35 | disposition home or self-care (01) ==
LOC: NEPK 16:26
DX: S62.001A Unspecified fracture of navicular [scaphoid] bone of right wrist, initial encounter for closed fracture (principal); M67.431 Ganglion, right wrist; J45.909 Unspecified asthma, uncomplicated; F32.9 Major depressive disorder, single episode, unspecified; E11.9 Type 2 diabetes mellitus without complications; I10 Essential (primary) hypertension; W18.30XA Fall on same level, unspecified, initial encounter; Z79.899 Other long term (current) drug therapy; Z72.0 Tobacco use
CPT/HCPCS: 73110; 99283; L3808